=== PATIENT | female | born 1990 | race Caucasian/White ===

== ENCOUNTER → 2024-01-19 | Outpatient (CLI) | payer OTHER ==
--- NOTE | 2024-01-19 13:31 | XR ---
EXAMINATION TYPE: XR chest 2V, XR Hip Complete 2 views RT, XR ribs 4 views RT DATE OF EXAM: 01/19/2024 COMPARISON: None HISTORY: 33-year-old female R05.9 COUGH S22.31XA RIB FX S79.911A Hip trauma and pain FINDINGS: CHEST: The cardiomediastinal silhouette, aorta, and pulmonary vasculature are within normal limits. Lungs an d pleural spaces are clear. Right RIBS: No displaced right rib fracture is seen. Right hip: Joint space is maintained. No acute fracture, subluxation, or dislocation. Some possible fibrocystic change at the femoral head junction and punctate ossific density along the lateral acetabular margin. IMPRESSION: 1. Chest: No acute cardiopulmonary process. 2. Right ribs: No displaced right rib fracture seen. 3. Right hip: No acute osseous abnormality seen. Either a tiny os acetabuli or degenerative labral os sification. Given some possible fibrocystic change at the femoral head neck junction, correlate for a ny potential symptoms of underlying femoral acetabular impingement syndrome.
== END | disposition home or self-care (01) ==
LOC: RADXRMAIN 12:20
PROVIDERS: ATTEND Family Medicine
DX: R05.9 Cough, unspecified (principal); S22.31XA Fracture of one rib, right side, initial encounter for closed fracture; S79.911A Unspecified injury of right hip, initial encounter
CPT/HCPCS: 71046; 73502